=== PATIENT | male | born 1975 | race Caucasian/White ===

== ENCOUNTER 2017-07-12 21:45 | Emergency (ER) | payer OTHER ==
[~2017-07-12] VITALS: Ht 185.4 cm; Wt 96.1 kg
[~2017-07-12 21:45] MED LIST: BUTALB-APAP-CA1 EACH; LYRICA150 MG PO; PERCOCET 5/31 TABLET PO; PREDNISONE50 MG PO; SKELAXIN800 MG PO
[2017-07-13] MEDS ORDERED: AUGMENTIN875 MG PO (01:33)
[2017-07-13 02:23] VITALS: BP 120/75
== END 2017-07-13 02:24 | disposition home or self-care (01) ==
LOC: EME 21:45
DX: S61.210A Laceration without foreign body of right index finger without damage to nail, initial encounter (principal); S62.660A Nondisplaced fracture of distal phalanx of right index finger, initial encounter for closed fracture; W54.0XXA Bitten by dog, initial encounter; Z23 Encounter for immunization
CPT/HCPCS: 73140; 99281; 99284